=== PATIENT | female | born 1970 | race African-American/Black ===

== ENCOUNTER 2017-08-05 21:34 | Emergency (ER) | payer SELFPAY ==
[~2017-08-05] VITALS: Ht 172.7 cm; Wt 99.4 kg
[2017-08-05 21:52] VITALS: BP 123/90
== END 2017-08-06 | disposition left against medical advice (07) ==
LOC: ER 21:34
DX: R07.9 Chest pain, unspecified (principal); Z53.21 Procedure and treatment not carried out due to patient leaving prior to being seen by health care provider
CPT/HCPCS: 93005

== ENCOUNTER 2018-09-25 11:38 | Emergency (ER) | payer SELFPAY ==
[~2018-09-25] VITALS: Ht 172.7 cm; Wt 100.0 kg
[2018-09-25 11:40] VITALS: BP 137/66
== END 2018-09-25 15:17 | disposition home or self-care (01) ==
LOC: ER 11:38
DX: S80.01XA Contusion of right knee, initial encounter (principal); Z98.890 Other specified postprocedural states; X50.1XXA Overexertion from prolonged static or awkward postures, initial encounter; Y93.01 Activity, walking, marching and hiking; Y92.89 Other specified places as the place of occurrence of the external cause; Y99.8 Other external cause status
CPT/HCPCS: 29505; 29530; 73562; 81025; 99283

== ENCOUNTER 2019-03-01 22:32 | Emergency (ER) | payer SELFPAY ==
[~2019-03-01] VITALS: Ht 172.7 cm; Wt 100.0 kg
[2019-03-01] MEDS ORDERED: SODIUM CHLORIDE 0.9% 1,000 ML IV ONE (23:58)
[2019-03-01] MEDS ORDERED: KETOROLAC 30MG/ML VIAL IV STA (23:58)
[2019-03-01] MEDS ORDERED: ONDANSETRON HCL 4MG/2ML INJ IV STA (23:58)
[2019-03-02] MEDS ORDERED: DEXAMETHASONE 10 MG/ML VIAL IV ONE
[2019-03-02] MEDS ORDERED: CLINDAMYCIN 600 MG in DEXTROSE 5% WATER 50 ML IV ONE ×2
[2019-03-02] MEDS ORDERED: CLINDAMYCIN 600MG PREMIX 50 ML IV ONE (00:45)
[2019-03-02 00:51] LABS: BASOPHILS % 0.8 % (0.0-2.0); EOSINOPHILS % 0.7 % (0.0-5.0); HEMATOCRIT. 32.8 % (36.0-48.0); HEMOGLOBIN. 10.7 g/dL (12.0-16.0); LYMPHOCYTES % 21.3 % (20.0-50.0); MEAN CORPUSCULAR HEMOGLOBIN 27.7 pg (28.0-32.0); MEAN PLATELET VOLUME 8.4 fl (7.4-10.4); MONOCYTES % 5.4 % (2.0-8.0); NEUTROPHILS % 71.8 % (40.0-76.0); PLATELET 319 x1000/uL (130-400); RED BLOOD CELL COUNT 3.86 mill/uL (4.2-5.4); RED CELL DISTRIBUTION WIDTH 14.1 % (11.6-14.6)
[2019-03-02 00:54] LABS: CHLORIDE 106 mEq/L (98-107)
[2019-03-02] MEDS ORDERED: IOHEXOL-300 100 ML BOTTLE ONE (03:57)
[2019-03-02 07:55] VITALS: BP 131/81
== END 2019-03-02 08:13 | disposition short-term general hospital (02) ==
LOC: ER 22:32
DX: J39.1 Other abscess of pharynx (principal); R59.0 Localized enlarged lymph nodes; J02.9 Acute pharyngitis, unspecified; Z98.890 Other specified postprocedural states
CPT/HCPCS: 36415; 70487; 71045; 80053; 81025; 83605; 84145; 85025; 87040; 87070; 87430; 93005; 96365; 96375; 99285; J1100; J1885; J2405; J3490; J7030; Q9967; J7060